=== PATIENT | male | born 1995 | race Caucasian/White ===

== ENCOUNTER 2018-03-08 09:13 | Emergency (ER) | payer MEDICAID ==
[~2018-03-08] VITALS: Ht 170.2 cm; Wt 102.0 kg
[2018-03-08 09:18] VITALS: BP 137/92
== END 2018-03-08 14:24 | disposition left against medical advice (07) ==
LOC: ER 12:27
DX: M79.641 Pain in right hand (principal)
CPT/HCPCS: 99281

== ENCOUNTER 2018-07-13 06:54 | Emergency (ER) | payer MEDICAID ==
[~2018-07-13] VITALS: Ht 170.2 cm; Wt 101.0 kg
[2018-07-13 08:07] VITALS: BP 154/96
[2018-07-13] MEDS ORDERED: IBUPROFEN 600MG TABLET PO ONE (08:15)
== END 2018-07-13 08:45 | disposition home or self-care (01) ==
LOC: ER 07:08
DX: S90.111A Contusion of right great toe without damage to nail, initial encounter (principal); F17.200 Nicotine dependence, unspecified, uncomplicated; W01.0XXA Fall on same level from slipping, tripping and stumbling without subsequent striking against object, initial encounter; Y93.89 Activity, other specified; Y92.89 Other specified places as the place of occurrence of the external cause; Y99.8 Other external cause status
CPT/HCPCS: 99283

== ENCOUNTER 2019-11-13 05:55 | Emergency (ER) | payer MEDICAID ==
[~2019-11-13] VITALS: Ht 170.2 cm; Wt 107.0 kg
[2019-11-13] MEDS ORDERED: KETOROLAC 60MG/2ML VIAL IM ONE (06:30)
[2019-11-13 08:05] VITALS: BP 124/84
== END 2019-11-13 08:27 | disposition home or self-care (01) ==
LOC: ER 06:17
DX: M79.605 Pain in left leg (principal)
CPT/HCPCS: 73590; 96372; 99283; J1885

== ENCOUNTER → 2022-03-22 | Day surgery (SDC) | payer MEDICAID, OTHER ==
[~2022-03-22] VITALS: Ht 170.2 cm; Wt 107.0 kg
[~2022-03-22] MED LIST: ACETAMINOPHEN 325MG TABLET PO NR; BUPIVACAINE HCL/PF 0.5% (5MG/ML) 10ML ONE; DEXAMETHASONE 4MG/ML 1ML VIAL ONE; FENTANYL CITRATE/PF 50MCG/ML 2ML VIAL IV SCH; FENTANYL CITRATE/PF 50MCG/ML 2ML VIAL ONE; FENTANYL CITRATE/PF 50MCG/ML 5ML VIAL ONE; GLYCOPYRROLATE 0.2 MG/ML 2ML VIAL ONE; IBUPROFEN 600MG TABLET PO STA; LIDOCAINE HCL 1% 20ML VIAL (Pyxis) INJ ONE; METOCLOPRAMIDE HCL 10MG/2ML VIAL ONE; MIDAZOLAM HCL 2 MG/2 ML VIAL ONE; MORPHINE SULFATE 4 MG/ML CPJ (NOT FOR IM USE) IV STA; NEOSTIGMINE METHYLSULFATE 1MG/ML 10 ML VIAL ONE; ONDANSETRON HCL 4MG/2ML INJ IV NR; ONDANSETRON HCL 4MG/2ML INJ IV STA; ONDANSETRON HCL 4MG/2ML INJ ONE; PIPERACILLIN/TAZ 3.375G PREMIX 50 ML IV ONE; PROPOFOL 200MG/20ML VIAL IV ONE; ROCURONIUM BROMIDE 10MG/ML VIAL 5ML IV ONE; SKIN ADHESIVE 0.7 GM EA TOP ONE; SUCCINYLCHOLINE CHLORIDE 200MG/10ML IV ONE
[2022-03-22 07:15] LABS: BASOPHILS % 0.6 % (0.0-2.0); EOSINOPHILS % 1.3 % (0.0-5.0); HEMATOCRIT. 45.1 % (42.0-52.0); HEMOGLOBIN. 15.2 g/dL (14.0-18.0); LYMPHOCYTES % 16.6 % (20.0-50.0); MEAN CORPUSCULAR HEMOGLOBIN 30.8 pg (28.0-32.0); MEAN CORPUSCULAR VOLUME 91.3 fL (80.0-94.0); MEAN PLATELET VOLUME 9.7 fl (7.4-10.4); MONOCYTES % 8.2 % (2.0-8.0); NEUTROPHILS % 73.3 % (40.0-76.0); PLATELET 247 x1000/uL (130-400); RED BLOOD CELL COUNT 4.94 mill/uL (4.7-6.1); RED CELL DISTRIBUTION WIDTH 13.9 % (11.6-14.6)
[2022-03-22 07:24] LABS: CHLORIDE 103 mEq/L (98-107)
[2022-03-22 08:52] VITALS: BP 159/76
[2022-03-22 09:34] LABS: CLARITY URINE CLEAR (CLEAR); COLOR URINE YELLOW (YELLOW); KETONES URINE 1+ (NEGATIVE); LEUKOCYTE ESTERASE URINE NEGATIVE (NEGATIVE); NITRITE URINE NEGATIVE (NEGATIVE); OCCULT BLOOD URINE NEGATIVE (NEGATIVE); PH URINE 6.5 (4.5-8.0); PROTEIN URINE 1+ (NEGATIVE); SPECIFIC GRAVITY URINE 1.022 (1.005-1.030); UROBILINOGEN URINE 0.2 E.U./dL (0.2-1.0)
== END | disposition home or self-care (01) ==
LOC: ER 05:56 → OR 05:57 → EDBEDREQTM 07:50 → UNDOADMIN 07:59 → ORIP 07:59 → EDBEDREQTM 08:06 → EDBEDREQ 08:06
PROVIDERS: ATTEND Internal Medicine
DX: K35.80 Unspecified acute appendicitis (principal); Z79.899 Other long term (current) drug therapy; Z98.890 Other specified postprocedural states; Z20.822 Contact with and (suspected) exposure to COVID-19
CPT/HCPCS: 36415; 44970; 74176; 80053; 81003; 85025; 87426; 88304; 99285; C9803; J0330; J1100; J2250; J2405; J2543; J2704; J2710; J2765; J3010; J3490; J7030

== ENCOUNTER 2023-11-15 08:02 | Emergency (ER) | payer MEDICAID, OTHER ==
[~2023-11-15] VITALS: Ht 170.2 cm; Wt 100.0 kg
[2023-11-15 08:05] VITALS: O2SAT 97
[2023-11-15] MEDS ORDERED: CHLORDIAZEPOXIDE 25MG CAPSULE PO ONE (08:30)
[2023-11-15] MEDS ORDERED: ONDANSETRON HCL 4MG/2ML INJ IV ONE (08:30)
[2023-11-15 09:02] LABS: BASOPHILS % 0.6 % (0.0-2.0); EOSINOPHILS % 0.4 % (0.0-5.0); HEMOGLOBIN. 15.3 g/dL (14.0-18.0); LYMPHOCYTES % 15.1 % (20.0-50.0); MEAN CORPUSCULAR VOLUME 91.2 fL (80.0-94.0); MEAN PLATELET VOLUME 9.2 fl (7.4-10.4); MONOCYTES % 14.3 % (2.0-8.0); NEUTROPHILS % 69.6 % (40.0-76.0); PLATELET 241 x1000/uL (130-400); RED BLOOD CELL COUNT 4.93 mill/uL (4.7-6.1); RED CELL DISTRIBUTION WIDTH 13.7 % (11.6-14.6); WHITE BLOOD COUNT 7.6 x1000/uL (4.5-11.0)
[2023-11-15 09:09] LABS: CARBON DIOXIDE 27 mEq/L (21-32); CHLORIDE 102 mEq/L (98-107); POTASSIUM 3.6 mEq/L (3.5-5.1); SODIUM 134 mEq/L (136-145)
[2023-11-15 09:14] LABS: CREATININE 0.7 mg/dL (0.6-1.3)
[2023-11-15 09:15] LABS: GLUCOSE 152 mg/dL (70-105); UREA NITROGEN BLOOD 8 mg/dL (9-23)
[2023-11-15 09:16] LABS: ALANINE AMINOTRANSFERASE 422 IU/L (10-49)
[2023-11-15 09:17] LABS: ALBUMIN 4.5 g/dL (3.2-4.8); ASPARTATE AMINOTRANSFERASE 246 IU/L (<34); BILIRUBIN DIRECT 0.5 mg/dL (<=3.0); BILIRUBIN TOTAL 1.1 mg/dL (0.1-1.0); PROTEIN TOTAL 8.1 g/dL (6.0-8.3)
[2023-11-15 09:19] LABS: TROPONIN I HIGH SENSITIVITY < 4 ng/L (3.0-53)
[2023-11-15] MEDS: SODIUM CHLORIDE 0.9% 1,000 ML IV ONE (09:59)
[2023-11-15] MEDS: DICYCLOMINE HCL 10MG/ML 2ML VIAL IM ONE (10:13)
[2023-11-15] MEDS: CHLORDIAZEPOXIDE 25MG CAPSULE PO NR (10:15)
[2023-11-15] MEDS ORDERED: ONDA4TAB11 PO (10:38)
[2023-11-15] MEDS ORDERED: CHLO25CA11 MT (10:38)
[2023-11-15] MEDS: ONDANSETRON HCL 4MG/2ML INJ IV NR (10:43)
[2023-11-15 10:49] VITALS: BP 145/83; PULSE 79; RESP 20; TEMP 98.7
== END 2023-11-15 10:56 | disposition home or self-care (01) ==
LOC: ER 08:02
DX: R11.2 Nausea with vomiting, unspecified (principal); F10.10 Alcohol abuse, uncomplicated; R07.9 Chest pain, unspecified; E86.0 Dehydration
CPT/HCPCS: 80076; 80048; 83690; 85025; 84484; 36415; 71045; 93005; 96361; 96372; 96374; 99285; J0500; J2405; J7030; Z7610 ×2